=== PATIENT | male | born 1995 | race Caucasian/White ===

== ENCOUNTER 2021-07-05 15:20 | Emergency (ER) | payer MEDICAID ==
[~2021-07-05] VITALS: Ht 182.9 cm; Wt 81.6 kg
[2021-07-05 15:45] VITALS: BP 127/76
[2021-07-05] MEDS ORDERED: LORazepam 2MG/ML-1ML VIAL IV ONE (16:00)
[2021-07-05] MEDS ORDERED: SODIUM CHLORIDE 0.9% 500 ML IVB ONE (16:00)
[2021-07-05] MEDS ORDERED: SODIUM CHLORIDE 0.9% 1,000 ML IV ONE (16:00)
[2021-07-05] MEDS ORDERED: levETIRAcetam 500 MG TAB PO ONE (16:15)
== END 2021-07-05 16:09 | disposition left against medical advice (07) ==
LOC: ER 15:20
DX: R56.9 Unspecified convulsions (principal); Z53.21 Procedure and treatment not carried out due to patient leaving prior to being seen by health care provider

== ENCOUNTER 2022-01-08 16:00 | Emergency (ER) | payer MEDICAID ==
[2022-01-08] MEDS ORDERED: levETIRAcetam 500 MG TAB PO ONE (16:35)
[2022-01-08 16:36] VITALS: BP 138/76
== END 2022-01-08 16:39 | disposition left against medical advice (07) ==
LOC: EDUNIT# 16:00 → EDBD 16:00 → ER 16:04
DX: R56.9 Unspecified convulsions (principal); Z53.21 Procedure and treatment not carried out due to patient leaving prior to being seen by health care provider

== ENCOUNTER 2022-04-04 17:16 | Emergency (ER) | payer MEDICAID ==
[~2022-04-04] VITALS: Ht 185.4 cm; Wt 104.3 kg
[2022-04-04 18:05] VITALS: BP 120/68
== END 2022-04-04 18:31 | disposition left against medical advice (07) ==
LOC: EDBD 17:16 → ER 17:16
DX: R56.9 Unspecified convulsions (principal)
CPT/HCPCS: 93005